=== PATIENT | female | born 1960 | race Caucasian/White ===

== ENCOUNTER 2018-02-23 17:08 | Inpatient (IN) | payer MEDICAID ==
[~2018-02-23] VITALS: Ht 167.6 cm; Wt 77.6 kg
[~2018-02-23 17:08] MED LIST: ORE25 PO; [UNRECOGNIZED DRUG - REMARK]; [UNRECOGNIZED DRUG - REMARK]
[2018-02-23 17:10] VITALS: BP 163/81
[2018-02-23] MEDS ORDERED: NACL 0.9% 1,000 ML IV ONE (17:30)
[2018-02-23] MEDS ORDERED: ASPIRIN 81 MG TAB.CHEW PO ONE (17:30)
[2018-02-23] MEDS ORDERED: PANTOPRAZOLE 40 MG INJ VIAL IVP ONE (17:30)
[2018-02-23 18:09] LABS: BASOPHILS % (AUTO) 0.3 % (0.0-2.0); EOSINOPHILS # (AUTO) 0.1 K/uL (0-0.4); EOSINOPHILS % (AUTO) 0.8 % (0.0-4.0); HEMATOCRIT 40.1 % (36-48); HEMOGLOBIN 13.3 g/dL (12.0-16.0); LYMPHOCYTES # (AUTO) 1.4 K/uL (2.5-16.5); LYMPHOCYTES % (AUTO) 21.1 % (20.5-51.1); MEAN CORPUSCULAR HEMOGLOBIN 27 pg (27-31); MEAN CORPUSCULAR HGB CONC 33 g/dL (33-37); MEAN CORPUSCULAR VOLUME 80.7 fL (80-94); MONOCYTES # (AUTO) 0.4 K/uL (0.8-1.0); MONOCYTES % (AUTO) 5.8 % (1.7-9.3); NEUTROPHILS # (AUTO) 4.8 K/uL (1.8-7.7); PLATELET COUNT (AUTO) 229 K/uL (140-450); RED BLOOD CELL COUNT(AUTO) 4.97 MIL/uL (4.20-5.40); RED CELL DISTRIBUTION WIDTH 13.6 % (11.6-13.7); WHITE BLOOD COUNT (AUTO) 6.7 K/uL (4.8-10.8)
[2018-02-23 18:19] LABS: ANION GAP 13.8 (8-16); CARBON DIOXIDE 27.9 mmol/L (21-32); POTASSIUM 3.7 mmol/L (3.5-5.1)
[2018-02-23 18:22] LABS: ALBUMIN 3.6 g/dL (3.4-5.0); TOTAL BILIRUBIN 0.2 mg/dL (0.0-1.0)
[2018-02-23 18:24] LABS: PROTHROMBIN TIME 9.3 secs (10.8-13.4)
[2018-02-23] MEDS ORDERED: METO50TE2 PO (18:42)
[2018-02-23] MEDS ORDERED: LISI-420 PO (18:42)
[2018-02-23] MEDS ORDERED: METF1000 PO (18:42)
[2018-02-23] MEDS ORDERED: ORE25 PO (18:42)
[2018-02-23 19:03] VITALS: BP 151/56
[2018-02-23] MEDS ORDERED: DOCUSATE SODIUM 100 MG GELCAP PO PRN (19:10)
[2018-02-23] MEDS ORDERED: LORazepam 2 MG/ML VIAL IM/IVP PRN (19:10)
[2018-02-23] MEDS ORDERED: ACETAMINOPHEN 325 MG TAB PO PRN (19:10)
[2018-02-23] MEDS ORDERED: HYDROcodone/APAP 5/325 MG 1 TAB TAB PO PRN (19:10)
[2018-02-23] MEDS ORDERED: ONDANSETRON 4 MG/2 ML VIAL IM/IVP PRN (19:10)
[2018-02-23] MEDS ORDERED: ZOLPIDEM 5 MG TAB PO PRN (19:10)
[2018-02-23 21:12] LABS: MAGNESIUM 1.6 mg/dL (1.8-2.4); PHOSPHORUS 3.5 mg/dL (2.5-4.9); THYROID STIMULATING HORMONE 0.92 uIU/mL (0.34-3.74)
[2018-02-23] MEDS: NACL 0.9% 1,000 ML IV SCH (21:19)
[2018-02-23] MEDS ORDERED: SIMV20TA1 PO (21:45)
[2018-02-23] MEDS ORDERED: MELO7.5T11 PO (21:46)
[2018-02-23] MEDS ORDERED: DEXTROSE 50% 50 ML SYR IVP PRN (21:50)
[2018-02-23] MEDS ORDERED: GLIP5TAB4 PO (21:55)
[2018-02-23] MEDS ORDERED: MORPHINE SULFATE 4 MG/ML SYR IVP PRN (21:55)
[2018-02-23] MEDS ORDERED: KETOROLAC 30 MG/ML VIAL IVP PRN (21:55)
[2018-02-23] MEDS ORDERED: NITROGLYCERIN 0.4 MG TAB SL PRN (21:55)
[2018-02-23] MEDS ORDERED: METOPROLOL 50 MG TAB PO SCH (22:00)
[2018-02-23] MEDS: INSULIN LISPRO SLIDING SCALE 100 UNITS/ML VIAL SUBQ PRN (22:48)
[2018-02-23] MEDS ORDERED: MAGNESIUM OXIDE 400 MG TAB PO SCH (23:00)
[2018-02-24 02:50] LABS: BARBITURATE, URINE NEG. ng/ml (NEG <=200); BENZODIAZEPINE, URINE NEG. ng/mL (NEG <=200); CANNABINOID, URINE NEG. ng/mL (NEG <=50); COCAINE, URINE NEG. ng/mL (NEG <=300); OPIATE, URINE NEG. ng/mL (NEG <=2000); PHENCYCLIDINE SCREEN,URINE NEG. ng/mL (NEG <=25)
[2018-02-24 04:00] VITALS: BP 164/79
[2018-02-24 06:28] LABS: BASOPHILS % (AUTO) 0.9 % (0.0-2.0); EOSINOPHILS # (AUTO) 0.1 K/uL (0-0.4); EOSINOPHILS % (AUTO) 2.6 % (0.0-4.0); HEMATOCRIT 38.6 % (36-48); HEMOGLOBIN 12.8 g/dL (12.0-16.0); LYMPHOCYTES # (AUTO) 1.7 K/uL (2.5-16.5); LYMPHOCYTES % (AUTO) 36.2 % (20.5-51.1); MEAN CORPUSCULAR HEMOGLOBIN 27 pg (27-31); MEAN CORPUSCULAR HGB CONC 33 g/dL (33-37); MEAN CORPUSCULAR VOLUME 81.4 fL (80-94); MONOCYTES # (AUTO) 0.4 K/uL (0.8-1.0); MONOCYTES % (AUTO) 9.4 % (1.7-9.3); NEUTROPHILS # (AUTO) 2.4 K/uL (1.8-7.7); NEUTROPHILS % (AUTO) 50.9 % (42.2-75.2); PLATELET COUNT (AUTO) 204 K/uL (140-450); RED BLOOD CELL COUNT(AUTO) 4.75 MIL/uL (4.20-5.40); RED CELL DISTRIBUTION WIDTH 13.8 % (11.6-13.7); WHITE BLOOD COUNT (AUTO) 4.7 K/uL (4.8-10.8)
[2018-02-24] MEDS: BLOOD GLUCOSE MONITORING 1 DEV DEV FS SCH ×2 (06:54→11:52)
[2018-02-24] MEDS: INSULIN LISPRO SLIDING SCALE 100 UNITS/ML VIAL SUBQ PRN (06:55)
[2018-02-24 07:14] LABS: ANION GAP 9.7 (8-16); CARBON DIOXIDE 30.2 mmol/L (21-32); CREATININE 0.7 mg/dL (0.6-1.3); POTASSIUM 3.9 mmol/L (3.5-5.1)
[2018-02-24 07:21] LABS: CHOL/HDL RATIO 4.3 (1-4.5)
[2018-02-24 08:00] VITALS: BP 158/74
[2018-02-24] MEDS ORDERED: metFORMIN 500 MG TAB PO SCH ×3 (08:00→17:00)
[2018-02-24] MEDS: LISINOPRIL 20 MG TAB PO SCH ×2 (08:46→12:29)
[2018-02-24] MEDS: HYDROCHLOROTHIAZIDE 25 MG TAB PO SCH ×2 (08:48→12:28)
[2018-02-24] MEDS ORDERED: METOPROLOL 50 MG TAB PO SCH (09:00)
[2018-02-24] MEDS ORDERED: LISINOPRIL 20 MG TAB PO SCH (09:00)
[2018-02-24] MEDS ORDERED: glipiZIDE 5 MG TAB PO SCH (09:00)
[2018-02-24] MEDS ORDERED: ASPIRIN 81 MG TAB.CHEW PO SCH (09:00)
[2018-02-24] MEDS: NACL 0.9% 1,000 ML IV SCH (11:58)
[2018-02-24 12:00] VITALS: BP 161/78
[2018-02-24] MEDS ORDERED: MAG SULF 2000 MG/WATER PREMIX 50 ML IV ONE (12:05)
[2018-02-24] MEDS: MAGNESIUM SULFATE 1GM in DEXTROSE 5% 100 ML PREMIX IV SCH ×2 (12:32→14:22)
[2018-02-24 16:00] VITALS: BP 150/88
[2018-02-24] MEDS ORDERED: SIMVASTATIN 20 MG TAB PO SCH (17:00)
== END 2018-02-24 16:30 | disposition left against medical advice (07) | DRG 243 ==
LOC: MED 17:08 → MTU 18:45
PROVIDERS: ADMIT General Practice; ATTEND General Practice
DX: K21.9 Gastro-esophageal reflux disease without esophagitis (principal); E11.65 Type 2 diabetes mellitus with hyperglycemia; I11.9 Hypertensive heart disease without heart failure; M94.0 Chondrocostal junction syndrome [Tietze]; E78.5 Hyperlipidemia, unspecified; E83.42 Hypomagnesemia; M17.12 Unilateral primary osteoarthritis, left knee; Z53.21 Procedure and treatment not carried out due to patient leaving prior to being seen by health care provider; Z79.899 Other long term (current) drug therapy; Z79.84 Long term (current) use of oral hypoglycemic drugs; Z83.3 Family history of diabetes mellitus; Z82.3 Family history of stroke
CPT/HCPCS: 36415; 71045; 80048; 80053; 80305; 82948; 83036; 83690; 83735; 83880; 84100; 84134; 84443; 84484; 85025; 85610; 85730; 87081; 93005; 96361; 96374; 99285; C9113; J1815; J7030; Q0092

== ENCOUNTER 2018-03-29 20:54 | Emergency (ER) | payer MEDICAID ==
[~2018-03-29] VITALS: Ht 167.6 cm; Wt 86.2 kg
[~2018-03-29 20:54] MED LIST changes: +GLIP5TAB4 PO; +LISI-420 PO; +MELO7.5T11 PO; +METF1000 PO; +METO50TE2 PO; +SIMV20TA1 PO; -[UNRECOGNIZED DRUG - REMARK]; -[UNRECOGNIZED DRUG - REMARK]
--- NOTE | 2018-03-29 21:06 | NUR ---
TO BED # 9 AMBULATORY , REPORT GIVEN TO ALETA HANLEY
[2018-03-29 21:07] VITALS: BP 170/86
--- NOTE | 2018-03-29 21:25 | NUR ---
MIRA HILARIO AT BEDSIDE.
--- NOTE | 2018-03-29 21:25 | NUR ---
57 YO F BIB SON. C/O HIGH BLOOD SUGAR X1 WEEK. PT STATES TO BE FEELING SHAKEY X1 WEEK. PT STATES TO HAVE SUGARS IN THE 200s X1 WEEK. PT IS AAOX4. DENIES LOC. DENIES N/V/D; SOB OR CHEST PAIN. PT IN GOWN. BED IN LOWER LOCKED POSITION; BEDRAILS UP X1. ER MD MADE AWARE OF PT STATUS. WILL CONTINUE TO MONITOR. HX: HTN, DIABETES, HYPERLIPIDEMIA.
--- NOTE | 2018-03-29 21:46 | NUR ---
Patient discharged with v/s stable. Written and verbal after care instructions given and explained. Patient verbalized understanding. Ambulatory with steady gait. All questions addressed prior to discharge. Advised to follow up with PMD. ID bracelet removed.
[2018-03-29 22:02] VITALS: BP 165/85
== END 2018-03-29 21:46 | disposition home or self-care (01) ==
LOC: MED 20:54
DX: E11.65 Type 2 diabetes mellitus with hyperglycemia (principal); I10 Essential (primary) hypertension; Z79.84 Long term (current) use of oral hypoglycemic drugs; Z79.899 Other long term (current) drug therapy; Z79.2 Long term (current) use of antibiotics
CPT/HCPCS: 81002; 99283

== ENCOUNTER 2022-02-09 08:08 | Day surgery (SDC) | payer OTHER ==
[~2022-02-09] VITALS: Ht 165.1 cm; Wt 90.7 kg
[~2022-02-09 08:08] MED LIST changes: +GLIP5TAB14 PO; -GLIP5TAB4 PO; +HYDR-4004 PO; -LISI-420 PO; +LISI-487 PO; +METF-1274 PO; -METF1000 PO; -ORE25 PO; +SIMV-372 PO; -SIMV20TA1 PO
[2022-02-09] MEDS ORDERED: LIDOCAINE 2% 100 MG/5 ML UJET TP ONE (09:43)
[2022-02-09] MEDS ORDERED: fentaNYL citrate 0.05 MG/ML VIAL ONE (09:43)
[2022-02-09] MEDS ORDERED: fentaNYL citrate 0.05 MG/ML VIAL IVP ONE (10:40)
== END 2022-02-09 10:56 | disposition home or self-care (01) ==
LOC: MOR 08:08 → MMU 08:09 → MOR 10:56
PROVIDERS: ATTEND Internal Medicine Gastroenterology
DX: Z12.11 Encounter for screening for malignant neoplasm of colon (principal); K21.9 Gastro-esophageal reflux disease without esophagitis; I10 Essential (primary) hypertension; E78.5 Hyperlipidemia, unspecified; E11.9 Type 2 diabetes mellitus without complications; M19.90 Unspecified osteoarthritis, unspecified site; Z20.822 Contact with and (suspected) exposure to COVID-19
CPT/HCPCS: 45378; 87426; J3010